=== PATIENT | male | born 1990 | race Caucasian/White ===

== ENCOUNTER → 2025-05-26 08:22 | Outpatient (REF) | payer BC, SELFPAY ==
--- OUTSIDE RECORDS SUMMARY | 2025-05-26 08:30 | XMS_ITS | Clinical Summary ---
Author Organization [facility] Address [address] [place] [phone] Phone Care Team Providers Care Ordnance Truck Installation Supervisor Name Role Phone Pcp, Unknown Primary Care Provider Unavailabl e Allergies No known active allergies Medications * This document contains information received from the source organization and may not represent a complete record from that organization. hydrOXYzine (VISTARIL) 50 MG capsule Take 1 capsule (50 mg total) by mouth 2 (two) times a day as needed for anxiety. 28 capsule 05/18/20 25 Active LORazepam (ATIVAN) 1 MG tablet Take 1 tablet (1 mg total) by mouth nightly at bedtime as needed for anxiety. 14 tablet 05/18/20 25 Active OLANZapine (ZYPREXA ZYDIS) 5 MG disintegrating tablet Take 1 tablet (5 mg total) by mouth nightly at bedtime. 14 tablet 05/18/20 25 Active amoxicillin-clavul anate (AUGMENTIN) 875-125 mg per tablet Take 1 tablet (875 mg of amoxicillin total) by mouth 2 (two) times a day for 7 days. 14 tablet 05/23/20 25 025 Active Active Problems Problem Noted Date Diagnosed Date Psychosis 05/10/2025 Acute psychosis 05/10/2025 Psychosis, unspecified psychosis type 05/10/2025 Encounters * This document contains information received from the source organization and may not represent a complete record from that organization. Date Type Department Care Team Description 05/25/2025 2:30 PM EDT Office Visit [facility] at [address] [address] Gerardo Jules PA-C Bashista, Karleena Anne PA-C Visit for wound check (Primary Dx); Dog bite of left upper arm, subsequent encounter 05/23/2025 11:00 AM EDT Office Visit [facility] at [address] [address] Riya Tatum PA-C Dog bite, initial encounter (Primary Dx) from Last 3 Months Social History Tobacco Use Types Packs/Day Years Used Date Smoking Tobacco: Some Days Cigarettes Smokeless Tobacco: Never Tobacco Cessation:Ready to Q uit: Not Asked; Counseling Given: Not Answered Alcohol Use Standard Drinks/Week Comments Not Currently 0 (1 standard drink = 0.6 oz pur e alcohol) Education Answer Date Recorded Are you interested in more education? Not on shaista e 05/10/2025 Are you concerned about learning? Not on file 05/10/2025 No 05/10/2025 No 05/10/2025 Digital Access Answer Date Recorded No 05/10/2025 No 05/10/2025 Reliable internet access at home? Not on file 05/10/2025 Device with a working camera? Not on file Intimate Partner Violence Answer Date R ecorded Are you denied basic needs s uch as food, clothing, or medical care? No 05/10/2025 In the past 12 months have y ou been in a relationship with a person who hurts, threatens, or tries to control you? No 05/10/2025 Are you denied basic needs s uch as food, clothing, or medical care? No 05/10/2025 In the past 12 months have y ou been in a relationship with a person who hurts, threatens, or tries to control you? No 05/10/2025 Sex and Gender Information Value Date Recorded Sex Assigned at Not on file Legal Sex Male 12:15 AM EDT Gender Identity Not on file Sexual Orientation Not on file Last Filed Vital Signs Vital Sign Reading Time Taken Comments Blood Pressure 119/80 05/25/2025 2:29 PM EDT Pulse 85 05/25/2025 2:29 PM EDT Temperature 36.7 C (98 F) 05/25/2025 2:29 PM EDT Respiratory Rate 20 05/25/2025 2:29 PM EDT Oxygen Saturation 98% 05/25/2025 2:29 PM EDT Inhaled Oxygen Concentration - - Weight 90.7 kg (200 lb) 05/25/2025 2:29 PM EDT Height 195.6 cm (6' 5 ) 05/25/2025 2:29 PM EDT Body Mass Index 23.72 05/25/2025 2:29 PM EDT Plan of Treatment Upcoming Encounters Date Type Department Care Team (Late st Contact Info) Description 03/10/2026 1:00 PM EDT Office Visit [facility] [address] [facility] [facility] [address] [place] [address] Johnathon Erwin MD [address] [facility] [address] [place], [place] [id number] [email or web address] Post Health Maintenance Due Date Last Done Comments Adult Td,Tdap Booster 1992 DEPRESSION SCREENING 2004 SMOKING Hx and SMOKELESS TOB ACCO SCREENING 2005 HEPATITIS C SCREENING 2010 HIV ONE-TIME SCREENING (18-6 5 YEARS) 2010 PNEUMOCOCCAL VACCINES (0-49 years) (1 of 2 - PCV) 2011 COVID-19 VACCINE (2023-2 5 season) 2024 HEPATITIS A VACCINES Aged Out No long er eligible based on patient's age to complete this topic HIB VACCINES Aged Out No longer eligi ble based on patient's age to complete this topic MENINGOCOCCAL VACCINES (ACWY) Aged Out No longer eligible based on patient's age to complete this topic MENINGOCOCCAL VACCINES (B) Aged Out N o longer eligible based on patient's age to complete this topic Medical Devices Not on file Procedures Procedure Name Priority Date/Time Associated Diagnosis Comments IRRIGATION AND DEBRIDEMENT Routine 05/23/2025 1:30 PM EDT Dog bite, initial encounter ECG 12-LEAD Routine 05/14/2025 11:23 AM EDT COVID PANDEMIC RESPIRATORY VIRAL ORDER (PRO) STAT 05/12/2025 9:14 AM EDT TSH WITH REFLEX Routine 05/11/2025 7:54 AM EDT HEMOGLOBIN A1C Routine 05/11/2025 7:54 AM EDT LIPID PANEL Routine 05/11/2025 7:54 AM EDT URINALYSIS W/REFLEX URINE CULTURE STAT 05/10/2025 2:01 AM EDT ETHANOL, BLOOD STAT 05/10/2025 1:47 AM EDT LIPASE STAT 05/10/2025 1:47 AM EDT LFTS (HEPATIC PANEL) STAT 05/10/2025 1:47 AM EDT BASIC METABOLIC PANEL STAT 05/10/2025 1:47 AM EDT CBC AND DIFFERENTIAL STAT 05/10/2025 1:47 AM EDT from Last 3 Months Results * IRRIGATION AND DEBRIDEMENT (05/23/2025 1:30 PM EDT) Other Narrative Riya Tatum PA-C - 05/23/2025 1:30 PM EDT Riya Tatum PA-C 05/23/2025 1:34 PM Irrigation and Debridement Date/Time: 05/23/2025 1:30 PM Performed by: Riya Tatum PA-C Authorized by: Riya Tatum PA-C Indications: Dog bite left upper arm. Patient sedated?: No Local anesthesia used?: Yes Anesthesia: Local infiltration Local anesthetic: Lidocaine 1% without epinephrine Lidocaine without Epinephrine total (ml): 4 Procedure Details: 4 mL of 1% lidocaine without epinephrine was instilled into the wound and irrigation with 200 cc of sterile water under pressure ensued. Initially, patient had pain indicating depth of wound and that is when lidocaine was applied and remaining of procedure was painless. Bacitracin and dry sterile dressing was applied and all was well-tolerated. Riya Tatum PA-C PROCEDURE/MINOR SURGICAL OR DERABLES Final Result * ECG 12-LEAD (05/14/2025 11:23 AM EDT) Ventricular Rate EKG/MIN 76 BPM [facility] Atrial Rate 76 BPM [facility] VT Interval 182 ms [facility] QRS Duration 102 ms [facility] QT Interval 368 ms [facility] QTC Interval 414 ms [facility] P [place] 70 degrees [facility] R Wave [place] 90 degrees [facility] T Wave [place] 45 degrees [facility] 05/14/2025 11:2 3 AM EDT 05/14/2025 11:48 AM EDT Narrative [facility] - 05/14/2025 11:48 AM EDT Normal sinus rhythm Rightward axis Borderline ECG No previous ECGs available Confirmed by Naresh Jerez ([id number]) on 05/14/2025 11:48:51 AM us Pricilla Mayfield ENROLLER ECG ORDERABLES Final Resul t Performing Organization Address City/[facility]/ZIP Co de Phone Number [email or web address] * COVID Pandemic Respiratory Viral Order (PRO) (05/12/2025 9:14 AM EDT) Test Ordered Rapid COVID has been ordered [facility] SPECIMEN SOURCE/DESCRIPTION SWAB [facility] SARS-CoV 2 (COVID-19) PCR Negative Negative [facility] Comment: SARS-CoV-2 not detected Negative results do not preclude SARS-CoV-2 infection and should not be used as the sole basis for patient management decisions. Negative results must be combined with clinical observations, patient history, and epidemiological information. This test has been authorized by the FDA under an Emergency Use Authorization (EUA) for use by authorized laboratories. Other (Nasopharyngeal swab) 05/12/2025 9:14 AM EDT 05/12/2025 9:27 AM EDT us Avery Barclay PMHNP-BC BODY FLUIDS AND STOOLS OR DERABLES Final Result [facility] [address] [place] [address] * TSH with reflex (05/11/2025 7:54 AM EDT) TSH 1.51 0.27 - 4.20 uIU/mL [facility] Blood 05/11/2025 7:54 AM EDT 05/11/2025 8:02 AM EDT Pricilla Difkryszo ENROLLER LAB BLOOD ORDERABLES Final Result Performing Organization Address City/[facility]/ZIP Co de Phone Number [address] [address] * Hemoglobin A1c (05/11/2025 7:54 AM EDT) HEMOGLOBIN A1C 5.3 4.3 - 5.8 % [facility] Blood 05/11/2025 7:54 AM EDT 05/11/2025 8:01 AM EDT [facility] LAB BLOOD ORDERABLES Final Result Performing Organization Address City/[facility]/ZIP Co de Phone Number [address] [address] * (ABNORMAL) Lipid panel (05/11/2025 7:54 AM EDT) HDL 46 mg/dL [facility] Comment: Interpretation <40 mg/dL: Low HDL cholesterol (major risk factor for CHD) Greater than or equal to 60 mg/dL: High HDL cholesterol ( negative risk factor for CHD) HDL - cholesterol is affected by a number of factors, e.g. smoking, excerise, hormones, sex and age. CHOLESTEROL 138 0 - 240 mg/dL [facility] TRIGLYCERIDES 47 30 - 160 mg/dL [facility] LDL 83 50 - 129 mg/dL [facility] Comment: LDL levels in terms of risk for coronary heart disease: <100 mg/dL: Optimal 100-129 mg/dL: Near or above optimal 130-159 mg/dL: Borderline high 160-189 mg/dL: High >190 mg/dL: Very High CARDIAC RISK RATIO 3.0(L) 3.4 - 5.0 [facility] Blood 05/11/2025 7:54 AM EDT 05/11/2025 8:03 AM EDT Pricilla Tran ENROLLER LAB BLOOD ORDERABLES Final Result Performing Organization Address [facility] Co de Phone Number [address] [address] * (ABNORMAL) Urinalysis w/reflex Urine Culture (05/10/2025 2:01 AM EDT) COLOR Yellow Yellow [facility] CLARITY Clear [facility] GLUCOSE Negative Negative [facility] BILI Negative Negative [facility] KETONES 1+(A) Negative [facility] SPECIFIC GRAVITY >1.030 1.005 - 1.030 [facility] BLOOD Negative Negative [facility] PH 6.0 5.0 - 8.0 [facility] Protein-UA Negative Negative [facility] NITRITE Negative Negative [facility] Leukocyte esterase, ur Negative Negative [facility] Urine (Urine) 05/10/2025 2:0 1 AM EDT 05/10/2025 2:08 AM EDT us Howard Mckeon PA-C URINE ORDERABLES Final Resul t Performing Organization Address [facility] de Phone Number [address] [address] * Ethanol, blood (05/10/2025 1:47 AM EDT) ETHANOL <10 <10 mg/dL [facility] Blood 05/10/2025 1:47 AM EDT 05/10/2025 1:52 AM EDT us Howard Mckeon PA-C LAB BLOOD ORDERABLES Final R esult Performing Organization Address [facility] Co de Phone Number [address] [address] * LFTs (hepatic panel) (05/10/2025 1:47 AM EDT) ALKALINE PHOSPHATASE 44 39 - 117 U/L [facility] TOTAL BILIRUBIN 0.4 0.0 - 1.2 mg/dL [facility] DIRECT BILIRUBIN 0.1 0.0 - 0.2 mg/dL [facility] Bilirubin (Indirect) NOT CALCULATED 0 - 1.5 mg/dL [facility] AST 17 0 - 37 U/L [facility] ALT 11 0 - 40 U/L [facility] TOTAL PROTEIN 6.9 6.5 - 8.0 g/dL [facility] ALBUMIN 4.4 3.9 - 4.8 g/dL [facility] GLOBULIN 2.5 1 - 4.8 g/dL [facility] A/G Ratio 1.76 1.00 - 4.80 RATIO [facility] Blood 05/10/2025 1:47 AM EDT 05/10/2025 1:52 AM EDT us Howard Mckeon PA-C LAB BLOOD ORDERABLES Final R esult [facility] [address] [place] [address] * (ABNORMAL) CBC and differential (05/10/2025 1:47 AM EDT) WBC 6.28 4.00 - 11.00 K/uL [facility] RBC 4.56 4.50 - 5.90 M/uL [facility] HGB 13.5 13.5 - 17.5 g/dL [facility] HCT 39.8(L) 41.0 - 53.0 % [facility] PLT 196 150 - 450 K/uL [facility] MCV 87.3 80.0 - 100.0 fL [facility] MCH 29.6 27.0 - 31.0 pg [facility] MCHC 33.9 32.0 - 36.0 g/dL [facility] RDW 11.6 11.5 - 14.5 % [facility] MPV 9.2 8.4 - 12.0 fL [facility] NRBC 0.00 0.00 /100 WBCs [facility] ABSOLUTE NRBC 0.00 0.00 K/uL [facility] DIFF METHOD Auto [facility] NEUTS 56.1 48.0 - 76.0 % [facility] LYMPHS 30.4 18.0 - 41.0 % [facility] MONOS 11.3(H) 4.0 - 11.0 % [facility] EOS 1.3 0.0 - 5.0 % [facility] BASOS 0.6 0.0 - 1.5 % [facility] Granulocytes, immature (%) 0.3 0.0 - 0.9 % [facility] ABSOLUTE NEUTS 3.52 1.92 - 7.60 K/uL [facility] ABSOLUTE LYMPHS 1.91 0.72 - 4.10 K/uL [facility] ABSOLUTE MONOS 0.71 0.16 - 1.10 K/uL [facility] ABSOLUTE EOS 0.08 0.00 - 0.50 K/uL [facility] ABSOLUTE BASOS 0.04 0.00 - 0.15 K/uL [facility] Granulocytes, immature 0.02 0.00 - 0.09 K/uL [facility] Blood 05/10/2025 1:47 AM EDT 05/10/2025 1:52 AM EDT Howard Mckeon PA-C LAB BLOOD ORDERABLES Final R esult Performing Organization Address City/[facility]/ZIP Co de Phone Number [address] [address] * Lipase (05/10/2025 1:47 AM EDT) LIPASE 25 16 - 63 U/L [facility] Blood 05/10/2025 1:47 AM EDT 05/10/2025 1:52 AM EDT Howard Mckeon PA-C LAB BLOOD ORDERABLES Final R esult [address] [address] * (ABNORMAL) Basic metabolic panel (05/10/2025 1:47 AM EDT) SODIUM 142 133 - 146 mmol/L [facility] CHLORIDE 105 96 - 108 mmol/L [facility] POTASSIUM 3.3 3.3 - 5.1 mmol/L [facility] CO2 24 21 - 35 mmol/L [facility] BUN 17 6 - 19 mg/dL [facility] CREATININE 0.80 0.5 - 1.5 mg/dL [facility] GLUCOSE 109(H) 70 - 99 mg/dL [facility] CALCIUM 9.2 8.4 - 10.3 mg/dL [facility] EGFR >120 >59 mL/min/1.7 3m2 [facility] Comment:Estimated glomerular filtration rate calculated using the CKD-EPI refit equation. ANION GAP 16 10 - 20 mmol/L [facility] Blood 05/10/2025 1:47 AM EDT 05/10/2025 1:52 AM EDT us Howard Mckeon PA-C LAB BLOOD ORDERABLES Final R esult [facility] [address] [place] [address] from Last [address] [place] [address] [address] [place] [address] [place] [address] [place] [address] OUT STATE PPO [facility] OUT STATE PPO [place] [address] [place] [address] OUT [facility] PPO Advance Directives For more information, please contact: [phone] (9AM - 5PM [place], Sunday-Sunday) * Full Code (Latest Code Status on File) Date Activated Date Inactivated Comments 05/10/2025 12:15 PM Question Answer Comments Code Status Confirmed With: Patient Care Teams Ordnance Truck Installation Supervisor Relationship Specialty Start Date End Date Pcp, Unknown PCP - General 05/25/25 Additional Source Comments The information contained in this document represents components of the legal health record. It is not the complete legal health record.[facility]
--- NOTE | 2025-05-26 08:33 | ECG_ITS ---
Test Reason : CHECK QTC Blood Pressure : */* mmHG Vent. Rate : 72 BPM Atrial Rate : 72 BPM P-R Int : 188 ms QRS Dur : 112 ms QT Int : 394 ms P-R-T Axes : 70 93 42 degrees QTcB Int : 431 ms Normal sinus rhythm Rightward axis Incomplete right bundle branch block Borderline ECG No previous ECGs available Referred By: Tessa Riojas Electronically Signed By: LESLIE NEAL
[2025-05-26 08:50] LABS: MANUAL DIFF FLAG NO
[2025-05-26 09:14] LABS: Hematocrit 40.8 % (42.0-52.0); Hemoglobin 13.4 g/dl (14.0-18.0); Imm Gran Abs Auto 0.01 X10*3/uL (0.00-0.03); Imm Gran Pct Auto 0.3 % (0.0-0.4); Lymphocytes Absolute Auto 1.4 X10*3/uL (1.2-4.9); Mean Corpuscular HGB Conc 32.8 g/dl (31.0-36.0); Mean Corpuscular Hemoglobin 29.1 pg (27.0-33.0); Mean Corpuscular Volume 88.5 fL (80.0-98.0); NRBC Abs Auto 0.000 X10*3/uL (0.0-0.012); NRBC Pct Auto 0.0 /100WBC (0.0-0.2); Platelet Count 208 X10*3/uL (160-400); Red Blood Count 4.61 X10*6/uL (4.60-5.80); White Blood Count 3.9 X10*3/uL (4.8-10.8)
[2025-05-26 09:24] LABS: Hemoglobin A1C 127.8092 umol/L; Total Hemoglobin (HGBA1C) 3601.6555 umol/L
[2025-05-26 09:58] LABS: Alanine Aminotransferase 18 U/L (0-40); Albumin Level 4.8 g/dL (3.5-5.0); Alkaline Phosphatase 39 U/L (39-117); Anion Gap 10 (12-20); Aspartate Amino Transferase 26 U/L (5-37); Blood Urea Nitrogen 15 mg/dL (9-16); Calcium 9.3 mg/dL (8.4-10.2); Carbon Dioxide 29 mmol/L (22-29); Chloride 105 mmol/L (96-108); Cholesterol 170 mg/dL (<200); Estimated Glomerular Filt Rate > 60; HDL Cholesterol 49 mg/dL (>40); Magnesium 2.0 mg/dL (1.6-2.6); Potassium 3.7 mmol/L (3.3-5.1); Sodium 140 mmol/L (135-145); Total Protein 7.2 g/dL (6.5-8.0); Triglycerides 72 mg/dL (<150)
[2025-05-26 10:07] LABS: Free T4 (Free Thyroxine) 1.16 ng/dL (0.71-1.85); Thyroid Stimulating Hormone 2.93 uIU/mL (0.32-4.0)
[2025-05-26 10:10] LABS: Folate 9.1 ng/mL (> or = 4.0); Vitamin B12 428 pg/mL (200-900)
== END ==
LOC: HO.CARD 08:22
PROVIDERS: Visit Provider Psychiatry & Neurology Psychiatry
DX: F41.1 Generalized anxiety disorder (principal); F29 Unspecified psychosis not due to a substance or known physiological condition
CPT/HCPCS: 36415; 80053; 80061; 82306; 82550; 82607; 82746; 83036; 83090; 83735; 84425; 84439; 84443; 85025; 85652; 86140; 93005

== ENCOUNTER → 2025-05-26 08:33 | Outpatient (BNV) | payer BC, SELFPAY | PROVIDERS: Visit Provider Internal Medicine | DX: I45.10 Unspecified right bundle-branch block (principal) | CPT/HCPCS: 93010 ==

== ENCOUNTER 2025-06-04 13:15 | Outpatient (RCR) | payer BC, SELFPAY ==
[2025-05-22 09:44] VITALS: BMI 51.9
[2025-05-22 09:45] VITALS: BP 92/64; PULSE 76; TEMP 36.6
--- NOTE | 2025-05-22 14:11 | PC.ADMIT ---
Patient is a 34 year old male who was referred to [facility] by [facility] inpatient behavioral health unit where he was admitted from 05/10-05/18 secondary to experiencing insomnia and paranoia. See [facility] paperwork for more information. Patient stated prior to hospitalization, I was really wasn't doing ok. Paranoid wasn't trusting what I was seeing. Things that I was hearing and seeing felt really strange and my and I decided it was best I go inpatient . Patient reports inpatient was helpful. Patient reports less paranoid thoughts. Patient stated, Living in a new house some of the noises I think what is that but that's normal I think. No paranoia noted while meeting with patient during the nursing assessment. Patient reports he moved in December 20[place] [facility] in this area. Stated he moved to this area from [place]. Regarding employment patient stated, Work, I have no work right now . 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 Patient stated he quit the job. Patient thinking about going to [employer] and taking classes when feeling more stable. Patient is alert and oriented x4. He is calm and cooperative. Thoughts are clear and organized. He presented with anxious mood and affect. He denied SI, no HI. Patient received a copy of his safety plan if needed. Patient reports using Marijuana and would smoke one joint and use a few times a week. Reports he has not used in two weeks. Medications updated with patient and discharge medication list from [facility] paperwork. Patient reports he is taking medications as prescribed.
[2025-05-22 15:01] LABS: Cannabinoid Screen Urine Not Detected (Not Detect)
--- NOTE | 2025-05-26 23:35 | P.HPPSP_ITS ---
HPI Date of Service: 05/25/25 Chief Complaint: depression,edu Sources of Information: patient interviewed, chart reviewed and crisis/core team assessment reviewed HPI Narrative: This is a 34 yo male who was recently sent IPLOC due to increase paranoid thoughts pertaining to his neighbors and the house in . He was treated on olanzapine and discharged from [facility] a week ago. Developed paranoia around age 27, stress is the primary trigger and he appears to have good insight although admits it can be difficult to reality test when symptoms are severe. He lives at home with his who is a good support, and there are plans to possibly move from their current place bc it has been sotriggering. 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 He says he could not conitue to work as a j2ee software engineer on account of the isolative lifestyle exacerbating his symptoms. Past Psychiatric History: IPLOC x1: 04/2025 to [facility] No prior PHP, respite, detox/rehab admissions SA: denies SIB: denies Aggression or antisocial behaviors: denies Denies legal history CURRENT MEDICATIONS: olanzapine 5 mg qhs lorazepam hydroxyzine [facility] Medical History (Updated 06/24/25 @ 05:13 by Tessa Riojas MD) Tinnitus Narrative: costochondritis left knee injury previous concussions playing rugby (2 were with LOC) no seizures no surgeries history of pulmonary embolism in 2018 Ht: 6'5 Wt: 200 lbs ALL: NKDA Family History: Alcoholism on both sides of family Social History: , no children lives at home with Substance History: Occasional alcohol Nicotine dependence - on and off Cannabis Diagnostics Vital Signs (24Hr): BMI result Body Mass Index 51.9 Meds/Allergies Meds Home Medications ?Medication ?Instructions ?Recorded ?Confirmed ?Type lorazepam 1 mg tablet 1 mg PO BEDTIME PRN Anxiety 05/22/25 05/22/25 History amoxicillin 875 mg-potassium 1 tab PO BID 05/27/2504/15 History clavulanate 125 mg tablet Allergies Allergies Allergy/AdvReac Type Severity Reaction Status Date / Time No Known Allergies Allergy Verified 05/22/25 09:43 Assessment & Plan Assessment & Plan (1) Unspecified psychosis: Status: Acute Code(s): F29 - Unspecified psychosis not due to a substance or known physiological condition (2) CAMILA (generalized anxiety disorder): Status: Acute Code(s): F41.1 - Generalized anxiety disorder (3) Cannabis abuse: Status: Acute Code(s): F12.10 - Cannabis abuse, uncomplicated (4) Alcohol use disorder: Status: Acute Code(s): F10.90 - Alcohol use, unspecified, uncomplicated (5) Depressive disorder: Status: Acute Code(s): F32.A - Depression, unspecified Plan [facility] to [facility] VS reviewed: afebrile, BP92/64 ;76? bpm continue regular medications for now Routine lab work as indicated EKG, routine for baseline QTc for medication considerations as indicated UDS as indicated MassPat reviewed Continue to monitor as per protocol Patient educated on: diagnosis, medication risk/benefits and substance abuse Informed Consent: understands Reason for continued partial hosp. stay Substantial Risk for: rapid decompensation and med/psych decompensation Certification I certify that partial hospital treatment is medically necessary due to the symptoms and problems resulting from the patient's mental illness and the failure to treat the patient at the partial hospital level of care would likely result in the patient requiring inpatient psychiatric care which could not be prevented at a less intensive level of care. Time Spent With Patient Time: Total time managing care of this patient today __60__ minutes.
--- NOTE | 2025-05-28 15:44 | HO.PHP ---
Patient's case was opened and reviewed in treatment team
--- NOTE | 2025-05-29 19:09 | P.PNPSP_ITS ---
Subjective Subjective Date of Service: 05/29/25 Reason For Visit: depression,edu Interim History: Doing fine Reports sleep has been better. Fell asleep easily, woke a few times. Overall things are going fine DEnies any issues with paranoid thoughts, remains superficial but pleasant. Says he doesnt like to focus on those things and seems to want to change topic. ENgaged in groups, no concerns at this time. Mood is good, denies SI, HI, AH, VH. Medication Compliance: Yes Side effects from medications: No Attending Groups: Yes Review of Systems Acute medical concerns: No Mental Status Exam Mental Status Exam Narrative: Alert, oriented, in no acute distress. Calm, cooperative, guarded. Mood stable, affect appropriate. Speech normal. Thought process linear, coherent, more goal- directed. Thought content related to stressors, future-oriented, denies any helplessness, hopelessness or SI.? No aggressive ideation or HI. No paranoia or delusional content elicited. No evidence of psychosis. Insight and judgment fair-good. Diagnostics Vital Signs (24Hr): BMI result Body Mass Index 51.9 Assessment & Plan Assessment & Plan (1) Unspecified psychosis: Status: Acute Code(s): F29 - Unspecified psychosis not due to a substance or known physiological condition (2) CAMILA (generalized anxiety disorder): Status: Acute Code(s): F41.1 - Generalized anxiety disorder (3) Cannabis abuse: Status: Acute Code(s): F12.10 - Cannabis abuse, uncomplicated (4) Alcohol use disorder: Status: Acute Code(s): F10.90 - Alcohol use, unspecified, uncomplicated (5) Depressive disorder: Status: Acute Code(s): F32.A - Depression, unspecified Plan continue PHP continue regular medications Routine lab work as indicated EKG, routine for baseline QTc for medication considerations as indicated UDS as indicated VS reviewed: afebrile, BP92/64 ;76? bpm Continue to monitor as per protocol Patient educated on: diagnosis and medication risk/benefits Informed Consent: understands Reason for contiued partial hosp. stay Substantial Risk for: med/psych decompensation Certification I certify that partial hospital treatment is medically necessary due to the symptoms and problems resulting from the patient's mental illness and the failure to treat the patient at the partial hospital level of care would likely result in the patient requiring inpatient psychiatric care which could not be prevented at a less intensive level of care. Total time managing care of this patient today __30__ minutes. Discharge Plan Discharge Attending provider: Tessa Riojas Medications: Continued lorazepam 1 mg tablet 1 mg PO BEDTIME PRN (Reason: Anxiety) olanzapine 5 mg tablet,disintegrating 5 mg PO BEDTIME Qty: 30 0RF Discontinued hydroxyzine pamoate 50 mg capsule 50 mg PO BID PRN (Reason: Anxiety) Patient Comments: Patient reports he went to his prescriber at [facility] and this medication was discontinued as a result. Medication update form completed by patient. No Action amoxicillin-pot clavulanate 875-125 mg Tablet 1 tab PO BID Rx Instructions: Take for 7 days. Print Language: Trinidadian
--- NOTE | 2025-06-04 13:58 | P.PNPSP_ITS ---
Subjective Subjective Date of Service: 06/04/25 Reason For Visit: depression,edu Interim History: Patient seen for follow-up, anticipating discharge at the end of program today.? Reports no acute issues or concerns. Medication compliant, medications well- tolerated. Denies any adverse effects.? Mood is stable.? Denies any hopelessness or SI. Denies thoughts of harming self or others at this time. Denies any aggressive ideation or HI. Denies any paranoia or AH or VH. Sleep, appetite, energy stable. Medication Compliance: Yes Side effects from medications: No Attending Groups: Yes Review of Systems Acute medical concerns: No Mental Status Exam Mental Status Exam Narrative: Alert, oriented, in no acute distress. Calm, cooperative. Mood stable, affect appropriate. Speech normal. Thought process linear, coherent, more goal- directed. Thought content related to stressors, future-oriented, denies any helplessness, hopelessness or SI.? No aggressive ideation or HI. No paranoia or delusional content elicited. No evidence of psychosis. Insight and judgment keenan r-good. Diagnostics Vital Signs (24Hr): BMI result Body Mass Index 51.9 Assessment & Plan Assessment & Plan (1) Unspecified psychosis: Status: Acute Code(s): F29 - Unspecified psychosis not due to a substance or known physiological condition (2) CAMILA (generalized anxiety disorder): Status: Acute Code(s): F41.1 - Generalized anxiety disorder (3) Cannabis abuse: Status: Acute Code(s): F12.10 - Cannabis abuse, uncomplicated (4) Alcohol use disorder: Status: Acute Code(s): F10.90 - Alcohol use, unspecified, uncomplicated (5) Depressive disorder: Status: Acute Code(s): F32.A - Depression, unspecified Plan Discharge from [facility] Continue regular medications? Refills sent to pharmacy Will defer further medication management to outpatient provider *Safety plan reviewed *Discharge diagnoses, treatment course, discharge plan have been reviewed with p atient (including medication regime, medication management, potential side effects) as well as treatment rationale were also revisited *Discharge paperwork signed and given to patient, copy sent for scanning to chart Patient educated on: diagnosis and medication risk/benefits Informed Consent: understands Reason for contiued partial hosp. stay Substantial Risk for: stable for discharge Certification I certify that partial hospital treatment is medically necessary due to the symptoms and problems resulting from the patient's mental illness and the failure to treat the patient at the partial hospital level of care would likely result in the patient requiring inpatient psychiatric care which could not be prevented at a less intensive level of care. Total time managing care of this patient today __30__ minutes. Discharge Plan Discharge Attending provider: Tessa Riojas Medications: Continued lorazepam 1 mg tablet 1 mg PO BEDTIME PRN (Reason: Anxiety) olanzapine 5 mg tablet,disintegrating 5 mg PO BEDTIME Qty: 30 0RF Discontinued hydroxyzine pamoate 50 mg capsule 50 mg PO BID PRN (Reason: Anxiety) Patient Comments: Patient reports he went to his prescriber at [facility] and this medication was discontinued as a result. Medication update form completed by patient. No Action amoxicillin-pot clavulanate 875-125 mg Tablet 1 tab PO BID Rx Instructions: Take for 7 days. Print Language: Peruvian
--- NOTE | 2025-06-05 08:08 | PC.NURSE ---
Norm has a new PCP appointment scheduled for March 10, 2026 at 1pm through [facility].
== END 2025-06-04 23:59 | disposition home or self-care (01) ==
LOC: HO.PHPA 13:15
PROVIDERS: Visit Provider Psychiatry & Neurology Psychiatry
DX: F41.1 Generalized anxiety disorder (principal); F29 Unspecified psychosis not due to a substance or known physiological condition; F32.A Depression, unspecified; F12.10 Cannabis abuse, uncomplicated; F10.90 Alcohol use, unspecified, uncomplicated
CPT/HCPCS: 80307; 90791; 90853

== ENCOUNTER → 2025-06-04 13:15 | Outpatient (BNV) | payer BC, SELFPAY | PROVIDERS: Visit Provider Psychiatry & Neurology Psychiatry | DX: F29 Unspecified psychosis not due to a substance or known physiological condition (principal); F41.1 Generalized anxiety disorder; F12.10 Cannabis abuse, uncomplicated; F10.90 Alcohol use, unspecified, uncomplicated; F32.A Depression, unspecified | CPT/HCPCS: 99213 ==